=== PATIENT | female | born 1945 | race Caucasian/White ===

== ENCOUNTER 2023-12-19 10:06 | Emergency (ER) | payer OTHER, SELFPAY ==
[2023-12-19 10:10] VITALS: BP 200/100
[2023-12-19 10:28] VITALS: BMI 22.6
[2023-12-19] MEDS: ZOFRAN 4 MG IV (10:33)
[2023-12-19] MEDS: TORADOL 15 MG IV (10:33)
[2023-12-19] MEDS: NSS 1000 IV (10:33)
--- NOTE | 2023-12-19 10:42 | ED.GENMED ---
History of Present Illness
General
Chief Complaint: Flank Pain
Source: patient and spouse
Exam Limitations: none
Time Seen by Provider: 12/19/23 10:11
Nursing documentation reviewed up to this point in time: agreed with
Travel History
Have you had any contact with someone who has COVID-19?: No
Do you have any symptoms of coronavirus? Fever > 100 degrees, chills, cough, shortness of breath, sore throat, loss of taste or smell, muscle aches, or headache?: No
History of Present Illness
History of Present Illness:
78-year-old male with past ministry of CAD hypertension hyperlipidemia, kidney stones presenting to the emergency department today for concerns of like left flank pain that was abrupt in onset roughly 4 hours prior to arrival to the emergency
department. Does a history of kidney stones feels similar. Has had nausea no vomiting. No fevers no chest pain or shortness of breath. Took 2 oxycodone prior to arrival without relief of symptoms.
Past History
Past History
ED Past Medical History: CAD, HTN and Hypercholesterolemia; Negative IDDM or NIDDM
ED Past Surgical History: Cardiac
Social History
Tobacco: Non-smoker
Alcohol: Occasional
Drug: None
Personal:
Living: with family
Employment: Employed
Family History
Family History: Hypertension
Review of Systems
Review of Systems
Allergies reviewed?: Yes
All Other Systems: ROS reviewed and negative except as documented in HPI and ROS
Phy Exam
Physical Exam
Physical Exam:
GENERAL: Alert , in no apparent distress
EYE: pupils equal and reactive
NECK: Supple, no significant adenopathy.
ENT: o/p clr, mmm.
CARDIAC: Regular rate and rhythm .
LUNGS: Clear breath sounds bilaterally, no acute respiratory distress, no wheezes/rales/rhonchi
ABDOMEN: Soft, without focal tenderness, no r/g, no cvat
NEUROLOGICAL: Alert and oriented, no focal neuro deficits
SKIN: Warm and dry, skin intact.
MUSCULOSKELETAL: No edema, well perfused.
PSYCH: Normal and appropriate interaction.
Course
Orders/Labs/Results
Orders:
Orders
12/19/23 10:19
0.9% Sodium Chloride 1000 ml [Nss] 1,000 ml IV BOLUS
Ketorolac [Toradol] 15 mg IV NOW STA
Ondansetron Injectable [Zofran] 4 mg IV NOW STA
12/19/23 10:21
CT Abd/pel Without Iv Or Oral Urgent
Comment:
Reason For Exam: flank pain
12/19/23 10:37
Complete Blood Count/With Diff Urgent
Comprehensive Metabolic Panel Urgent
Urinalysis Reflex To Culture Urgent
Date Specimen was Collected: 12/19/23
Time Specimen was Collected: 10:28
Urine Microscopic Reflex Cult Urgent
Abnormal Lab Results
12/19/23
10:37
MPV 11.0 H fL
(7.4-10.4)
Absolute Neuts (auto) 8.1 H 10^3/uL
(1.4-6.5)
Absolute Lymphs (auto) 0.9 L 10^3/uL
(1.2-3.4)
Neutrophils % 85.8 H %
(42.2-75.2)
Lymphocytes % 9.5 L %
(20.5-51.1)
Carbon Dioxide 21 L mmol/L
(22-30)
BUN 18 H mg/dl
(7-17)
Glucose 236 H mg/dl
(70-99)
Total Bilirubin 1.4 H mg/dl
(0.2-1.3)
Ur Occult Blood Reflex 1+ A
(Negative)
Urine RBC 7-10 A /HPF
(0-2)
Urine Glucose 3+ A
(Negative)
12/19/23 10:37
12/19/23 10:37
Vital Signs
Initial and Last Documented VS:
Initial Vital Signs
Temp Pulse Resp BP Pulse Ox
98.1 F 75 16 200/100 98
12/19/23 10:10 12/19/23 10:10 12/19/23 10:10 12/19/23 10:10 12/19/23 10:10
Last Documented Vital Signs
Temp Pulse Resp BP Pulse Ox
98.1 F 75 16 200/100 90
12/19/23 10:10 12/19/23 10:10 12/19/23 10:10 12/19/23 10:10 12/19/23 10:31
MDM/Problems Addressed
MDM/Problems Addressed:
78-year-old female presenting to the emergency department today with concerns of left-sided flank starting few hours prior to arrival to the emergency department. Abrupt in onset associated nausea no vomiting. Feels similar to previous kidney
stones. Here patient in no obvious distress blood pressure elevated but otherwise vital signs are normal. Patient was given dose of Toradol to help with discomfort fluids and plan for CT scan for confirmation of diagnosis. CT scan confirming 5 mm
stone. No signs of complication. No infection symptoms well-controlled after receiving Toradol and Zofran. Stable for outpatient management will follow-up closely with urology return precautions given.
*Critical Care Note
Total Time (30-74mins, 75-104mins- exclusive of procedures): Not Applicable
ED Attending Note
-
Portions of this chart may have been created with voice recognition software.� Occasional wrong word or��sound alike� substitutions may have occurred due to the inherent limitations of voice recognition software.
Discharge Plan
Departure
Patient Disposition: Home (Routine Discharge)
Date of Disposition: 12/19/23
Time of Disposition: 13:03
Patient with high blood pressure during this ER visit?: No
Condition: Good
Covid-19: Not Applicable
Discharge Problem:
Calculus, ureteral
Instructions: Kidney Stones (DC)
Prescriptions:
New
ibuprofen 600 mg tablet
600 mg PO Q6H PRN (Reason: Pain) Qty: 10 0RF
ondansetron 4 mg tablet,disintegrating
4 mg PO Q6H PRN (Reason: nausea and vomiting) Qty: 7 0RF
tamsulosin [Flomax] 0.4 mg capsule
0.4 mg PO DAILY 7 Days Qty: 7 0RF
No Action
cyanocobalamin (vitamin B-12) 100 MCG tablet
1,000 mcg PO WEEKLY
amlodipine 5 MG tablet
5 mg PO DAILY
ascorbic acid (vitamin C) [Vitamin C] 500 MG tablet
500 mg PO WEEKLY
nitroglycerin 0.4 MG tablet, sublingual
0.4 mg sublingual [id number] PRN (Reason: chest pain)
aspirin 81 MG tablet,chewable
81 mg PO DAILY
pitavastatin calcium [Livalo] 2 MG tablet
2 mg PO HS
cholecalciferol (vitamin D3) 1,000 UNITS tablet
1,000 units PO WEEKLY
zinc acetate 50 mg (zinc) Capsule
50 mg PO WEEKLY
magnesium 250 mg Tablet
250 mg PO WEEKLY
Referrals:
Elizabeth Craft MD [Family Provider] -
Elías Jorgensen MD [Active] - Follow up in 1 week
Activity Restrictions/Additional Instructions:
You came to emergency department today with concerns of of left-sided flank pain. You are found to have a 5 mm stone in your ureter causing hydronephrosis on the left side. There is no signs of complications and your symptoms were well-controlled
here in the ER. Please take the symptomatic medications at home and take Flomax daily and follow-up closely with urology for reassessment. Return to the emergency department for any worsening, new or concerning symptoms.
Interventions
Interventions:
*Risk Screen - Suicide Last Done: 12/19/23 10:28
*General Assessment Last Done: 12/19/23 10:28
*Neglect/Abuse Screening Last Done: 12/19/23 10:28
ED- Fall Risk Assessment Last Done: 12/19/23 10:28
*ED COVID-19 Vaccine History Last Done: 12/19/23 10:10
IC-Ddrrhq-Abysurutqr Assessment Last Done: 12/19/23 10:28
ED-Female Genitourinary Assessment Last Done: 12/19/23 10:28
[2023-12-19 10:44] LABS: % Basophils 0.4 % (0-2); % Eosinophils 0.1 % (0-6); % Immature Granulocytes 0.2 % (0-0.5); % Lymphocytes 9.5 % (20.5-51.1); % Neutrophils 85.8 % (42.2-75.2); Absolute Lymphocytes 0.9 10^3/uL (1.2-3.4); Absolute Monocytes 0.4 10^3/uL (0.1-0.6); Absolute Neutrophils 8.1 10^3/uL (1.4-6.5); Hematocrit 43.2 % (37.0-47.0); Hemoglobin 14.7 g/dL (12.0-16.0); Mean Corpuscular Hgb 30.9 pg (27.0-31.0); Mean Corpuscular Volume 90.9 fL (81.0-99.0); Nucleated Red Blood Cells % 0 %; Platelet Count 209 10^3/uL (130-400); Red Blood Cell Count 4.75 10^6/uL (4.20-5.40); Red Cell Dist. Width 12.9 % (11.5-14.5); Urine Albumin Trace (Neg - Trace); Urine Bilirubin Negative (Negative); Urine Character Clear (Clear); Urine Color Yellow; Urine Glucose 3+ (Negative); Urine Ketone Negative (Negative); Urine Leukocyte Negative (Negative); Urine Nitrite Negative (Negative); Urine Occult Blood 1+ (Negative); Urine Urobilinogen Negative (Neg - 1+); White Blood Cell Count 9.5 10^3/uL (4.8-10.8)
[2023-12-19 10:55] LABS: Urine White Cell 0-2 /HPF (0-5)
[2023-12-19 11:00] VITALS: BP 151/66
[2023-12-19 11:03] LABS: ALT (SGPT) 19 U/L (0-35); AST (SGOT) 27 U/L (14-36); Albumin 4.1 g/dl (3.5-5.0); Alkaline Phosphatase 87 U/L (38-126); Blood Urea Nitrogen 18 mg/dl (7-17); Calcium 9.7 mg/dl (8.4-10.2); Carbon Dioxide 21 mmol/L (22-30); Chloride 102 mmol/L (98-107); Estimated Creatinine Clearance 58 ml/min; Glucose 236 mg/dl (70-99); Potassium 3.9 mmol/L (3.5-5.1); Sodium 137 mmol/L (135-145); Total Bilirubin 1.4 mg/dl (0.2-1.3); Total Protein 6.8 g/dl (6.3-8.2); eGFR > 60.00
== END 2023-12-19 13:20 | disposition home or self-care (01) ==
LOC: EMR 10:06
PROVIDERS: Physician Assistant; EMERGENCY PHYSICIAN Student in an Organized Health Care Education/Training Program; FAMILY PHYSICIAN Internal Medicine
DX: N13.2 Hydronephrosis with renal and ureteral calculous obstruction (principal); I10 Essential (primary) hypertension; I25.10 Atherosclerotic heart disease of native coronary artery without angina pectoris; E78.00 Pure hypercholesterolemia, unspecified; Z87.442 Personal history of urinary calculi
CPT/HCPCS: 99284; 96374; 96375; 96361; 74176; 80053; 81003; 81015; 85025

== ENCOUNTER → 2024-05-15 14:09 | Outpatient (REF) | payer OTHER, SELFPAY | LOC: RAD 14:09 | PROVIDERS: ATTENDING PHYSICIAN Specialist; FAMILY PHYSICIAN Internal Medicine | DX: N20.0 Calculus of kidney (principal) | CPT/HCPCS: 74018 ==

== ENCOUNTER → 2024-08-29 10:21 | Outpatient (REF) | payer OTHER, SELFPAY | LOC: WDC 10:21 | PROVIDERS: ATTENDING PHYSICIAN Internal Medicine | DX: N64.4 Mastodynia (principal) | CPT/HCPCS: 76642; 77063; 77067 ==

== ENCOUNTER 2025-01-07 17:36 | Emergency (ER) | payer OTHER, SELFPAY ==
[2025-01-07 17:39] VITALS: BP 164/80
--- NOTE | 2025-01-07 20:15 | ED.GENMED ---
History of Present Illness
General
Chief Complaint: Fall
Source: patient
Exam Limitations: none
Time Seen by Provider: 01/07/25 19:57
Nursing documentation reviewed up to this point in time: agreed with
History of Present Illness
History of Present Illness:
Patient is a 79-year-old female who presents to the ER for evaluation of fall. Patient was taking the trash cans out and lost her footing and fell hitting her face on the ground. She denies loss of consciousness. She did get herself up. She
denies any headache. She is not on blood thinners. She does complain of bruising around her right eye.
She denies any visual disturbance. She denies any nausea or vomiting. She denies any extremity pain. She does complain of a small cut to the right lateral eyebrow area. Her tetanus is up-to-date.
Past History
Past History
ED Past Medical History: CAD, HTN and Hypercholesterolemia; Negative IDDM or NIDDM
ED Past Surgical History: Cardiac
Social History
Tobacco: Non-smoker
Alcohol: Occasional
Drug: None
Personal:
Living: with family
Employment: Employed
Family History
Family History: Hypertension
Review of Systems
Review of Systems
Allergies reviewed?: Yes
All Other Systems: ROS reviewed and negative except as documented in HPI and ROS
Constitutional: Reports no symptoms
Respiratory: Reports no symptoms
Cardiac: Reports no symptoms
ABD/GI: Reports no symptoms; Denies nausea or vomiting
: Reports no symptoms
Musculoskeletal: Reports other (bruising around right eye )
Skin: Reports other (laceration to right face )
Neurological: Reports other ( no LOC ); Denies headache
Psychiatric: Reports no symptoms
Phy Exam
General Physical Exam
General Presentation: no apparent distress
General age: appears stated age
General Skin: warm and dry
General Habitus: normal
General Mental: alert
General Hydration: appears well hydrated
Eye Exam
Eye Exam: PERRL, EOMI and other (Ecchymosis to right orbital region with swelling and tenderness no step-offs, no entrapment; 1 cm partial thickness laceration lateral to right lateral eyebrow )
Eye Exam General: PERRL: bilateral and EOM intact: bilateral
Pupil Exam: Bilateral: round and reactive
Neurological Exam
Neurological Exam: alert and oriented x3
Musculoskeletal Exam
Musculoskeletal Exam: full ROM
Skin Exam
Skin Exam: normal color, warm/dry and other (1 cm partial-thickness laceration to right lateral eyebrow region )
Psychiatric Exam
Psychiatric Exam: normal mood/affect
Course
Orders/Labs/Results
Orders:
Orders
01/07/25 20:16
CT Cervical Spine W/o Iv Contr Urgent
Comment:
Reason For Exam: trauma
CT Facial Bones W/o Iv Contras Urgent
Comment:
Reason For Exam: trauma right orbit
CT Head W/o Iv Contrast Urgent
Comment:
Reason For Exam: trauma
Vital Signs
Initial and Last Documented VS:
Initial Vital Signs
Temp Pulse Resp BP Pulse Ox
98.4 F 79 18 164/80 96
01/07/25 17:39 01/07/25 17:39 01/07/25 17:39 01/07/25 17:39 01/07/25 17:39
Last Documented Vital Signs
Temp Pulse Resp BP Pulse Ox
98.4 F 59 18 149/58 95
01/07/25 17:39 01/07/25 20:20 01/07/25 17:39 01/07/25 20:20 01/07/25 20:20
Procedures
Laceration Closure
Right Lateral Eye:
Status of Wound: clean
Size of Wound in cm: 1
Description of Wound Edges: sharp
Preparation: cleaned with saline
Type of Closure: Dermabond-skin glue
MDM/Problems Addressed
Differential Diagnosis Includes:
Not limited to head injury, laceration, orbital fx
MDM/Problems Addressed:
As documented patient is a 79-year-old female who was outside and had a mechanical fall hitting her right face. She did have a small partial-thickness laceration to left lateral eyebrow; shots are up-to-date .
no loss of consciousness. CT head facial bones and cervical spine negative for acute findings. as documented patient cervical spine does show significant calcification of carotid bulbs and proximal internal carotid arteries bilaterally. I did
review this with patient and discussed importance of follow-up with vascular surgery as well as family doctor
Wound care reviewed.
*Critical Care Note
Total Time (30-74mins, 75-104mins- exclusive of procedures): Not Applicable
ED Attending Note
-
Portions of this chart may have been created with voice recognition software.� Occasional wrong word or��sound alike� substitutions may have occurred due to the inherent limitations of voice recognition software.
Discharge Plan
Departure
Patient Disposition: Home (Routine Discharge)
Date of Disposition: 01/07/25
Time of Disposition: 22:12
Patient with high blood pressure during this ER visit?: Yes
Covid-19: Not Applicable
Discharge Problem:
Head injury, Laceration
Instructions: Laceration Repair With Glue (DC), Head Injury in Adults (DC)
Prescriptions:
No Action
cyanocobalamin (vitamin B-12) 100 MCG tablet
1,000 mcg PO WEEKLY
amlodipine 5 MG tablet
5 mg PO DAILY
ascorbic acid (vitamin C) [Vitamin C] 500 MG tablet
500 mg PO WEEKLY
nitroglycerin 0.4 MG tablet, sublingual
0.4 mg sublingual [id number] PRN (Reason: chest pain)
aspirin 81 MG tablet,chewable
81 mg PO DAILY
pitavastatin calcium [Livalo] 2 MG tablet
2 mg PO HS
cholecalciferol (vitamin D3) 1,000 UNITS tablet
1,000 units PO WEEKLY
zinc acetate 50 mg (zinc) Capsule
50 mg PO WEEKLY
magnesium 250 mg Tablet
250 mg PO WEEKLY
ibuprofen 600 mg tablet
600 mg PO Q6H PRN (Reason: Pain) Qty: 10 0RF
ondansetron 4 mg tablet,disintegrating
4 mg PO Q6H PRN (Reason: nausea and vomiting) Qty: 7 0RF
tamsulosin [Flomax] 0.4 mg capsule
0.4 mg PO DAILY 7 Days Qty: 7 0RF
Referrals:
Robert Bass MD [Active] -
UNKNOWN - PT DOES,NOT KNOW [Family Provider] -
Activity Restrictions/Additional Instructions:
As discussed there are no acute findings on your CAT scans however please follow-up with your family doctor and vascular surgeon for additional findings seen on your cervical spine CAT scan regarding your carotid arteries.
For wound. Keep dry for 24 hours after 24 hours May lightly wash the wound. Glue will flake off on its own within 5 to 7 days. Do not apply antibiotic ointment or lotions to the area. See family doctor in 2 days for wound check
Ice the affected area for the next 24 hours 20 minutes at a time several times a day and take Tylenol as needed.
Interventions
Interventions:
*Risk Screen - Suicide Last Done: 01/07/25 20:17
*General Assessment Last Done: 01/07/25 20:17
*Neglect/Abuse Screening Last Done: 01/07/25 20:17
*ED COVID-19 Vaccine History Last Done: 01/07/25 20:17
ED- Neurological Assessment Last Done: 01/07/25 20:17
Discharge Date and Time
Print Language: [place]
[2025-01-07 20:20] VITALS: BP 149/58
[2025-01-07 20:23] VITALS: BMI 36.4
[2025-01-07 22:31] VITALS: BP 173/64
== END 2025-01-07 22:32 | disposition home or self-care (01) ==
LOC: EMR 17:36
PROVIDERS: EMERGENCY PHYSICIAN Emergency Medicine; FAMILY PHYSICIAN Internal Medicine
DX: S01.112A Laceration without foreign body of left eyelid and periocular area, initial encounter (principal); W01.0XXA Fall on same level from slipping, tripping and stumbling without subsequent striking against object, initial encounter; I25.10 Atherosclerotic heart disease of native coronary artery without angina pectoris; E78.00 Pure hypercholesterolemia, unspecified; I10 Essential (primary) hypertension
CPT/HCPCS: 12011; 99284; 70450; 70486; 72125

== ENCOUNTER → 2025-01-18 13:35 | Outpatient (REF) | payer OTHER, SELFPAY | LOC: RAD 13:35 | PROVIDERS: ATTENDING PHYSICIAN Internal Medicine; REFERRING PHYSICIAN Student in an Organized Health Care Education/Training Program | DX: I65.23 Occlusion and stenosis of bilateral carotid arteries (principal); R09.89 Other specified symptoms and signs involving the circulatory and respiratory systems; I10 Essential (primary) hypertension; E78.2 Mixed hyperlipidemia; I25.10 Atherosclerotic heart disease of native coronary artery without angina pectoris; E11.69 Type 2 diabetes mellitus with other specified complication | CPT/HCPCS: 93880 ==

== ENCOUNTER → 2025-02-15 12:59 | Outpatient (REF) | payer OTHER, SELFPAY | LOC: HWRAD 12:59 | PROVIDERS: ATTENDING PHYSICIAN Student in an Organized Health Care Education/Training Program; FAMILY PHYSICIAN Internal Medicine | DX: R60.0 Localized edema (principal) | CPT/HCPCS: 93971 ==

== ENCOUNTER → 2025-02-22 09:46 | Outpatient (REF) | payer OTHER, SELFPAY | LOC: HWRAD 09:46 | PROVIDERS: ATTENDING PHYSICIAN Nurse Practitioner Family; FAMILY PHYSICIAN Internal Medicine | DX: R14.0 Abdominal distension (gaseous) (principal); R10.12 Left upper quadrant pain; R19.7 Diarrhea, unspecified | CPT/HCPCS: 76700 ==

== ENCOUNTER → 2025-06-04 11:24 | Outpatient (REF) | payer OTHER, SELFPAY | LOC: HWRAD 11:24 | PROVIDERS: ATTENDING PHYSICIAN Specialist; FAMILY PHYSICIAN Internal Medicine | DX: N20.0 Calculus of kidney (principal) | CPT/HCPCS: 76770 ==

== ENCOUNTER → 2025-08-30 14:00 | Outpatient (REF) | payer OTHER, SELFPAY | LOC: WDC 14:00 | PROVIDERS: ATTENDING PHYSICIAN Internal Medicine | DX: Z78.0 Asymptomatic menopausal state (principal); Z12.31 Encounter for screening mammogram for malignant neoplasm of breast | CPT/HCPCS: 77063; 77067; 77080 ==

== ENCOUNTER → 2025-09-10 12:55 | Outpatient (REF) | payer OTHER, SELFPAY | LOC: RAD 12:55 | PROVIDERS: ATTENDING PHYSICIAN Internal Medicine | DX: M79.601 Pain in right arm (principal) | CPT/HCPCS: 73030; 73060 ==

== ENCOUNTER → 2025-11-05 13:33 | Outpatient (REF) | payer OTHER, SELFPAY | LOC: RAD 13:33 | PROVIDERS: ATTENDING PHYSICIAN Family Medicine; FAMILY PHYSICIAN Internal Medicine | DX: R10.32 Left lower quadrant pain (principal) | CPT/HCPCS: 74177; Q9967 ==